=== PATIENT | female | born 1970 | race African-American/Black ===

== ENCOUNTER → 2018-10-28 | Outpatient (CLI) | payer OTHER | END | disposition home or self-care (01) | LOC: US 10:31 | PROVIDERS: ATTEND Internal Medicine Endocrinology, Diabetes & Metabolism | DX: E04.1 Nontoxic single thyroid nodule (principal) | CPT/HCPCS: 76536 ==

== ENCOUNTER 2023-08-18 01:11 | Inpatient (IN) | payer OTHER ==
[~2023-08-18] VITALS: Ht 160 cm; Wt 68.9 kg
[2023-08-18 02:30] LABS: BASOPHILS % 0.5 % (0.0-2.0); EOSINOPHILS % 0.2 % (0.0-5.0); HEMATOCRIT. 37.6 % (36.0-48.0); HEMOGLOBIN. 12.5 g/dL (12.0-16.0); LYMPHOCYTES % 12.5 % (20.0-50.0); MEAN CORPUSCULAR HEMOGLOBIN 31.8 pg (28.0-32.0); MEAN CORPUSCULAR HGB CONC 33.1 g/dL (31.0-37.0); MEAN CORPUSCULAR VOLUME 96.1 fL (81.0-99.0); MONOCYTES % 2.8 % (2.0-8.0); RED BLOOD CELL COUNT 3.92 mill/uL (4.2-5.4); RED CELL DISTRIBUTION WIDTH 12.9 % (11.6-14.6); WHITE BLOOD COUNT 7.6 x1000/uL (4.5-11.0)
[2023-08-18 02:33] LABS: DIFFERENTIAL COMMENT 1
[2023-08-18 03:08] LABS: CLARITY URINE CLEAR (CLEAR); COLOR URINE YELLOW (YELLOW); GLUCOSE URINE NEGATIVE (NEGATIVE); KETONES URINE NEGATIVE (NEGATIVE); LEUKOCYTE ESTERASE URINE NEGATIVE (NEGATIVE); NITRITE URINE NEGATIVE (NEGATIVE); OCCULT BLOOD URINE 2+ (NEGATIVE); PH URINE 8.5 (4.5-8.0); PROTEIN URINE TRACE (NEGATIVE); SPECIFIC GRAVITY URINE 1.013 (1.005-1.030); UROBILINOGEN URINE 0.2 E.U./dL (0.2-1.0)
[2023-08-18] MEDS: ONDANSETRON 4MG ODT PO NR (03:35)
[2023-08-18] MEDS: KETOROLAC 60MG/2ML VIAL IM NR (03:35)
[2023-08-18 04:38] LABS: CHLORIDE 106 mEq/L (98-107); POTASSIUM 3.8 mEq/L (3.5-5.1); SODIUM 142 mEq/L (136-145)
[2023-08-18 04:39] LABS: CALCIUM 9.4 mg/dL (8.7-10.4); CARBON DIOXIDE 27 mEq/L (21-32)
[2023-08-18 04:44] LABS: GLUCOSE 179 mg/dL (70-105); UREA NITROGEN BLOOD 11 mg/dL (9-23)
[2023-08-18 04:46] LABS: ALANINE AMINOTRANSFERASE 15 IU/L (10-49); ALBUMIN 4.8 g/dL (3.2-4.8); ASPARTATE AMINOTRANSFERASE 28 IU/L (<34); BILIRUBIN TOTAL 0.4 mg/dL (0.1-1.0)
[2023-08-18 04:49] LABS: PROTEIN TOTAL 9.2 g/dL (6.0-8.3)
[2023-08-18 05:20] LABS: MEAN PLATELET VOLUME 8.7 fl (7.4-10.4); PLATELET 173 x1000/uL (130-400)
[2023-08-18] MEDS: MORPHINE SULFATE 4 MG/ML INJ (FOR IV/IM USE) IV ONE (06:57)
[2023-08-18] MEDS: SODIUM CHLORIDE 0.9% 1,000 ML IV ONE (07:25)
[2023-08-18 08:32] LABS: SQUAMOUS EPITHELIAL CELL URINE 2+ /lpf (RARE/1+)
[2023-08-18 08:33] LABS: BACTERIA URINE 1+
[2023-08-18 08:34] LABS: RBC URINE 25-50 /hpf (0-2); WBC URINE 0-2 /hpf (0-2)
[2023-08-18] MEDS ORDERED: DOCUSATE SODIUM 100MG CAPSULE PO PRN (09:45)
[2023-08-18] MEDS ORDERED: IPRATROPIUM/ALBUTEROL 0.5-3(2.5)MG/3ML NEB HHN PRN (09:45)
[2023-08-18] MEDS ORDERED: KETOROLAC 15MG/ML VIAL IV PRN (09:45)
[2023-08-18] MEDS ORDERED: NALOXONE HCL 0.4MG/ML VIAL IV PRN (09:45)
[2023-08-18] MEDS ORDERED: ACETAMINOPHEN 325MG TABLET PO PRN (09:45)
[2023-08-18] MEDS: MORPHINE SULFATE 4 MG/ML INJ (FOR IV/IM USE) IV NR (09:47)
[2023-08-18] MEDS: TAMSULOSIN HCL 0.4MG SR CAPSULE PO SCH (09:58)
[2023-08-18] MEDS: KETOROLAC 30MG/ML VIAL IV SCH (12:28)
[2023-08-18 12:47] LABS: CREATINE KINASE 123 IU/L (34-145)
[2023-08-18] MEDS: SODIUM CHLORIDE 0.45% 1,000 ML IV NR (13:17)
[2023-08-18] MEDS ORDERED: DIAZEPAM 5 MG/ML 2ML SYR IV SCH (13:45)
[2023-08-18] MEDS ORDERED: DIAZEPAM 5 MG/ML 2ML SYR IV PRN (14:00)
[2023-08-18 15:36] VITALS: BP 99/64; PULSE 69; RESP 18; TEMP 99.3
[2023-08-18 16:00] VITALS: BP 99/63; PULSE 69; RESP 17; TEMP 99.3
[2023-08-18] MEDS: MORPHINE SULFATE 2 MG/ML CPJ (NOT FOR IM USE) IV PRN (16:41)
[2023-08-18 20:00] VITALS: BP 109/52; PULSE 71; RESP 18; TEMP 97.7
[2023-08-18] MEDS: FAMOTIDINE 20MG TABLET PO SCH (21:29)
[2023-08-19] VITALS: BP 106/64; PULSE 77; RESP 18; TEMP 98.2
[2023-08-19] MEDS: GUAIFENESIN 200MG/10ML SUGAR FREE UDC PO PRN (03:09)
[2023-08-19] MEDS: ONDANSETRON HCL 4MG/2ML INJ IV PRN (05:15)
[2023-08-19 06:47] LABS: BASOPHILS % 0.9 % (0.0-2.0); EOSINOPHILS % 0.8 % (0.0-5.0); HEMOGLOBIN. 12.4 g/dL (12.0-16.0); LYMPHOCYTES % 20.7 % (20.0-50.0); MEAN CORPUSCULAR HEMOGLOBIN 32.3 pg (28.0-32.0); MEAN CORPUSCULAR HGB CONC 33.6 g/dL (31.0-37.0); MEAN CORPUSCULAR VOLUME 96.3 fL (81.0-99.0); MEAN PLATELET VOLUME 9.3 fl (7.4-10.4); MONOCYTES % 6.7 % (2.0-8.0); NEUTROPHILS % 70.9 % (40.0-76.0); PLATELET 220 x1000/uL (130-400); RED BLOOD CELL COUNT 3.84 mill/uL (4.2-5.4); WHITE BLOOD COUNT 9.1 x1000/uL (4.5-11.0)
[2023-08-19 07:41] LABS: CHLORIDE 105 mEq/L (98-107); POTASSIUM 3.5 mEq/L (3.5-5.1); SODIUM 140 mEq/L (136-145)
[2023-08-19 07:45] LABS: CARBON DIOXIDE 25 mEq/L (21-32)
[2023-08-19 07:48] LABS: THYROID STIMULATING HORMONE 1.41 uIU/mL (0.55-4.78)
[2023-08-19 07:49] LABS: ALANINE AMINOTRANSFERASE 9 IU/L (10-49)
[2023-08-19 07:50] LABS: GLUCOSE 115 mg/dL (70-105); TRIGLYCERIDE 112 mg/dL (0-150); UREA NITROGEN BLOOD 22 mg/dL (9-23)
[2023-08-19 07:51] LABS: ALBUMIN 4.3 g/dL (3.2-4.8); LDL CHOLESTEROL 97 mg/dL (5-100)
[2023-08-19 07:52] LABS: ASPARTATE AMINOTRANSFERASE 23 IU/L (<34); CHOLESTEROL 169 mg/dL (<200); HDL CHOLESTEROL 55 mg/dL (>65)
[2023-08-19 07:53] LABS: BILIRUBIN TOTAL 0.7 mg/dL (0.1-1.0)
[2023-08-19 08:00] VITALS: BP 127/69; PULSE 68; RESP 20; TEMP 99.1
[2023-08-19 08:00] LABS: CREATININE 3.5 mg/dL (0.6-1.0)
[2023-08-19] MEDS: SODIUM CHLORIDE 0.45% 1,000 ML IV SCH (09:45)
[2023-08-19] MEDS: DIAZEPAM 5 MG/ML 2ML SYR IV NR (11:28)
[2023-08-19 12:00] VITALS: BP 117/64; PULSE 60; RESP 20; TEMP 98.6
[2023-08-19 16:00] VITALS: BP 120/70; PULSE 78; RESP 20; TEMP 98.2
[2023-08-19] MEDS ORDERED: DIAZEPAM 5 MG/ML 2ML SYR IV PRN (18:00)
[2023-08-19] MEDS: DIAZEPAM 5 MG TABLET PO PRN (18:28)
[2023-08-20 01:00] VITALS: BP 156/93; PULSE 105; RESP 18; TEMP 98.2
[2023-08-20 04:00] VITALS: BP 120/66; PULSE 84; RESP 18; TEMP 97
[2023-08-20 06:33] LABS: BASOPHILS % 0.6 % (0.0-2.0); EOSINOPHILS % 0.6 % (0.0-5.0); HEMATOCRIT. 38.2 % (36.0-48.0); HEMOGLOBIN. 12.8 g/dL (12.0-16.0); LYMPHOCYTES % 18.4 % (20.0-50.0); MEAN CORPUSCULAR HGB CONC 33.5 g/dL (31.0-37.0); MEAN CORPUSCULAR VOLUME 95.4 fL (81.0-99.0); MEAN PLATELET VOLUME 9.1 fl (7.4-10.4); MONOCYTES % 7.9 % (2.0-8.0); NEUTROPHILS % 72.5 % (40.0-76.0); PLATELET 168 x1000/uL (130-400); POTASSIUM 4.3 mEq/L (3.5-5.1); RED BLOOD CELL COUNT 4.01 mill/uL (4.2-5.4); RED CELL DISTRIBUTION WIDTH 12.8 % (11.6-14.6); WHITE BLOOD COUNT 7.4 x1000/uL (4.5-11.0)
[2023-08-20 06:35] LABS: CALCIUM 8.3 mg/dL (8.7-10.4)
[2023-08-20 06:40] LABS: CREATININE 4.8 mg/dL (0.6-1.0)
[2023-08-20] MEDS ORDERED: DEXAMETHASONE 4MG/ML 1ML VIAL ONE (07:11)
[2023-08-20] MEDS ORDERED: FENTANYL CITRATE/PF 50MCG/ML 2ML VIAL ONE (07:11)
[2023-08-20] MEDS ORDERED: ONDANSETRON HCL 4MG/2ML INJ ONE (07:11)
[2023-08-20] MEDS ORDERED: PROPOFOL 200MG/20ML VIAL IV ONE (07:11)
[2023-08-20] MEDS ORDERED: MIDAZOLAM HCL 2 MG/2 ML VIAL ONE (07:12)
[2023-08-20] MEDS ORDERED: NALOXONE HCL 0.4MG/ML 1ML VIAL ONE (08:36)
[2023-08-20] MEDS ORDERED: LABETALOL 5MG/ML SYR 20 MG/4 ML SYRINGE IV PRN (08:45)
[2023-08-20] MEDS ORDERED: ONDANSETRON HCL 4MG/2ML INJ IV PRN (08:45)
[2023-08-20] MEDS ORDERED: MEPERIDINE HCL/PF 25MG/ML CPJ IV PRN (08:45)
[2023-08-20] MEDS: HYDROMORPHONE HCL/PF 2MG/ML CPJ IV PRN (09:09)
[2023-08-20 12:00] VITALS: BP 133/66; PULSE 70; RESP 20; TEMP 97.5
[2023-08-20 16:00] VITALS: BP 127/70; PULSE 69; RESP 20; TEMP 98
[2023-08-20 20:00] VITALS: BP 118/39; PULSE 66; RESP 18; TEMP 97.5
[2023-08-21] VITALS: BP 131/77; PULSE 87; RESP 18; TEMP 97.3
[2023-08-21 04:00] VITALS: BP 130/75; PULSE 93; RESP 18; TEMP 97.3
[2023-08-21 08:00] VITALS: BP 94/47; PULSE 67; RESP 20; TEMP 97.2
[2023-08-21 08:16] LABS: CARBON DIOXIDE 23 mEq/L (21-32); CHLORIDE 107 mEq/L (98-107); POTASSIUM 4.7 mEq/L (3.5-5.1); SODIUM 139 mEq/L (136-145)
[2023-08-21 08:17] LABS: CALCIUM 8.9 mg/dL (8.7-10.4)
[2023-08-21 08:22] LABS: GLUCOSE 103 mg/dL (70-105); UREA NITROGEN BLOOD 14 mg/dL (9-23)
[2023-08-21 08:30] LABS: CREATININE 1.4 mg/dL (0.6-1.0)
[2023-08-21] MEDS ORDERED: MAGNESIUM GLUCONATE 500MG TABLET PO SCH (09:15)
[2023-08-21 09:22] VITALS: BP 94/47; PULSE 67; TEMP 98; O2SAT 97
== END 2023-08-21 12:00 | disposition home or self-care (01) | DRG 660 ==
LOC: ER 01:11 → 6WST 06:03 → EDBEDREQ 09:04
PROVIDERS: ADMIT Preventive Medicine Clinical Informatics; ATTEND Preventive Medicine Clinical Informatics
PROC: 0T768DZ Dilation of Right Ureter with Intraluminal Device, Via Natural or Artificial Opening Endoscopic (ICD-10-PCS; principal; 2023-08-20)
PROC: 0TC68ZZ Extirpation of Matter from Right Ureter, Via Natural or Artificial Opening Endoscopic (ICD-10-PCS; 2023-08-20)
PROC: BT161ZZ Fluoroscopy of Right Ureter using Low Osmolar Contrast (ICD-10-PCS; 2023-08-20)
DX: N13.2 Hydronephrosis with renal and ureteral calculous obstruction (principal); K50.90 Crohn's disease, unspecified, without complications; N17.9 Acute kidney failure, unspecified; R73.9 Hyperglycemia, unspecified; E88.09 Other disorders of plasma-protein metabolism, not elsewhere classified; I10 Essential (primary) hypertension; K80.20 Calculus of gallbladder without cholecystitis without obstruction; N26.1 Atrophy of kidney (terminal); R73.03 Prediabetes; Z79.899 Other long term (current) drug therapy; Z87.442 Personal history of urinary calculi; Z88.8 Allergy status to other drugs, medicaments and biological substances
CPT/HCPCS: 36415; 74021; 74176; 80048; 80053; 80061; 81003; 82360; 82550; 83036; 83735; 84439; 84443; 85025; 88300; 99285; C1893; C2617; J1100; J1170; J1885; J2250; J2270; J2310; J2405; J2704; J3010; J7030; Q0162